=== PATIENT | female | born 2005 | race Two or more races ===

== ENCOUNTER 2025-04-01 14:54 | Emergency (ER) | payer BC, OTHER ==
[~2025-04-01] VITALS: Ht 149.9 cm; Wt 60.0 kg
--- NOTE | 2025-04-01 15:42 | DVH ---
CLINICAL INDICATION: r/o fracture TECHNIQUE: 3 radiographic views of the left ankle were obtained. Comparison: None FINDINGS/IMPRESSION: Soft tissue swelling around the distal tibia and fibula are noted. Bony structures appear intact normal alignment. No acute tibial or fibular fractures are visualized.
[2025-04-01] MEDS ORDERED: IBUP-1455 PO (16:05)
--- NOTE | 2025-04-01 16:05 | ED.PDOC ---
Musculoskeletal HPI Comments 19-year-old female that presents to the ED for chief complaint of left ankle pain. Patient states that she was getting into her bed and states she slipped and fell landed on her left ankle. Patient's states fall was earlier this afternoon and states she has been having pain and swelling to the medial and lateral left ankle. Patient denies hearing any crackling or popping sound after injury. Patient states she is able to ambulate but states she has pain while attempting to ambulate. Patient presents to the ED with a left ankle and Waqas bandage. Patient otherwise denies any other symptoms. Chief Complaint: Lower Extremity Time Seen by MD: 15:04 Reviewed Notes: Medications, Allergies Allergies: Coded Allergies: NO KNOWN ALLERGIES (Unverified , 04/01/25) Home Meds Active Scripts Ibuprofen Micronized (Ibuprofen) 800 Mg Tab, 800 MG PO Q8HP PRN for 10 Days, #30 TAB 0 Refills Prov:FERNANDOWESLY Liz NP 04/01/25 Information Source: Patient, Relative (Mother) Mode of Arrival: Wheelchair Brought in by: Mother Past Medical History PAST MEDICAL HISTORY: Denies Surgical History: Denies all surgeries LEGAL EDITOR History: Denies all LEGAL EDITOR Hx Family History Family History: Reviewed,noncontributory to illness Social History Smoker: Non-Smoker Alcohol: Denies ETOH Use Drugs: Denies Drug Use Lives In: Home Constitutional: denies: chills, diaphoresis, fatigue, fever, malaise, sweats, weakness, others EENTM: denies: blurred vision, double vision, ear bleeding, ear discharge, ear drainage, ear pain, ear ringing, eye pain, eye redness, hearing loss, mouth pain, mouth swelling, nasal discharge, nose bleeding, nose congestion, nose pain, photophobia, tearing, throat pain, throat swelling, voice changes, others Respiratory: denies: cough, hemoptysis, orthopnea, SOB at rest, shortness of breath, SOB with excertion, stridor, wheezing, others Cardiovascular: denies: chest pain, dizzy spells, diaphoresis, Dyspnea on exertion, edema, irregular heart beat, left arm pain, lightheadedness, palpitations, PND, syncope, others Gastrointestinal: denies: abdomen distended, abdominal pain, blood streaked bowels, constipated, diarrhea, dysphagia, difficulty swallowing, hematemesis, melena, nausea, poor appetite, poor fluid intake, rectal bleeding, rectal pain, vomiting, others Genitourinary: denies: abnormal vagina bleeding, burning, dyspareunia, dysuria, flank pain, frequency, hematuria, incontinence, pain, , vagina discharge, urgency, others Neurological: denies: dizziness, fainting, headache, left sided numbness, left sided weakness, numbness, paresthesia, pre-existing deficit, right sided numbness, right sided weakness, seizure, speech problems, tingling, tremors, weakness, others Musculoskeletal: reports: joint pain (Left ankle), joint swelling (Left ankle); denies: back pain, gout, muscle pain, muscle stiffness, neck pain, others Integumetry: denies: bruises, change in color, change in hair/nails, dryness, laceration, lesions, lumps, rash, wounds, others Allergic/Immunocompromised: denies: Difficulty Healing, Frequent Infections, Hives, Itching, others Hematologic/Lymphatic: denies: anemia, blood clots, easy bleeding, easy bruising, swollen glands, others Endocrine: denies: excessive hunger, excessive sweating, excessive thirst, excessive urination, flushing, intolerance to cold, intolerance to heat, unexp lained weight gain, unexplained weight loss, others Psychiatric: denies: anxiety, bipolar disorder, depression, hopeless, panic disorder, schizophrenia, sleepless, suicidal, others All Other Systems: Reviewed and Negative Physical Exam General Appearance: No Apparent Distress, Normal HEENT: Normal ENT Inspection, Pharynx Normal, TMs Normal Neck: Full Range of Motion, Non-Tender, Normal, Normal Inspection Respiratory: Chest Non-Tender, Lungs Clear, No Accessory Muscle Use, No Respiratory Distress, Normal Breath Sounds Cardiovascular: No Edema, No JVD, No Murmur, No Gallop, Normal Peripheral Pulse s, Regular Rate/Rhythm Breast Exam: Deferred Gastrointestinal: No Organomegaly, Non Tender, No Pulsatile Mass, Normal Bowel Sounds, Soft Genitalia: Deferred Pelvic: Deferred Rectal: Deferred Extremities: Swelling (Left ankle medial and lateral malleolus) Musculoskeletal : Apperance: Normal Neurologic: Alert, preventive medicine officer II-XII nml as Tested, No Motor Deficits, Normal Affect, Normal Mood, No Sensory Deficits Cerebellar Function: Normal Reflexes: Normal Skin: Dry, Normal Color, Warm Lymphatic: No Adenopathy Was a procedure done? Was a procedure done?: No Differential Diagnosis EXT Differential Diagnosis: Fracture, Sprain, Dislocation Other Differential Diagnosis Ankle sprain X-Ray, Labs, Meds, VS Vital Signs Date Time Temp Pulse Resp B/P (MAP) Pulse Ox O2 Delivery O2 Flow Rate FiO2 04/01/25 16:17 98.2 68 16 122/62 (82) 99 98.2 04/01/25 16:17 62 16 99 Room Air 04/01/25 14:56 97.7 89 16 124/59 98 97.7 [place] [id number] Ph: [phone] DIAGNOSTIC IMAGING Diagnostic Imaging Report : [id number] Signed PATIENT: NIK RANDLE ACCT: [id number] UNIT: [id number] : 2005 LOC: ER ROOM / BED: / AGE / SEX: 19 / F ADM STATUS: REG ER SERVICE 1501 ORDERING PHYSICIAN: WESLY KING NP PROCEDURE(s): LANKL - L ANKLE 3 VIEW REASON: r/o fracture ORDER NUMBER(s): [id number], ACCESSION NUMBER(s): [id number] CLINICAL INDICATION: r/o fracture TECHNIQUE: 3 radiographic views of the left ankle were obtained. Comparison: None FINDINGS/IMPRESSION: Soft tissue swelling around the distal tibia and fibula are noted. Bony structures appear intact normal alignment. No acute tibial or fibular fractures are visualized. ATED BY: HU MONTOYA Jr., DO DICTATED DATE/TIME: 04/01/251539 SIGNED BY: HU MONTOYA Jr., SIGNED DATE/TIME: 04/01/251539 CC: X-Ray, Labs, Meds, VS Comment Patient arrives alert and oriented, ABC's intact, afebrile, vital signs stable, saturating well in room air Diagnostic imaging ordered by me and results interpreted by radiology : FINDINGS/IMPRESSION: Soft tissue swelling around the distal tibia and fibula are noted. Bony structures appear intact normal alignment. No acute tibial or fibular fractures are visualized. Findings: No fracture or dislocation My wet read reveals no apparent acute bony abnormality, no FB, minimal to no soft tissue swelling and appropriate alignment. Presentation most consistent with Ankle Sprain. Patient does not currently demonstrate complications of sprain such as compartment syndrome, arterial or nerve injury. Differentials considered but not limited to: sprain, fracture, achilles tendon rupture, Maisonneuve fracture, distal fibula avulsion fracture, bi/tri-malleolar fracture, neurovascular compromise. The joint itself is non-irritable with ROM and there is no overlying redness and warmth to suggest injection. The Achilles and dorsiflexion tendon are non-tender and extension is intact. Disposition: Discharge. Supportive bracing provided. Patient was placed in an air-splint, WBAT. RICE. Strict return precautions and instructions to follow up with primary MD within 24-48 hours for further evaluation. May benefit from additional imaging such as stress views or MRI. Time of 1ST Reevaluation: 15:40 Reevaluation 1ST: Unchanged Patient Education/Counseling: Diagnosis, Treatment Family Education/Counseling: Diagnosis, Treatment Departure 1 Departure Time of Disposition: 16:02 Impression: Primary Impression: Left ankle sprain Qualified Codes: S93.402A - Sprain of unspecified ligament of left ankle, initial encounter Disposition: HOME / SELF CARE / HOMELESS Condition: Fair e-Prescriptions Ibuprofen Micronized (Ibuprofen) 800 Mg Tab 800 MG PO Q8HP PRN for 10 Days, #30 TAB 0 Refills Prov: WESLY KING NP 04/01/25 Discharged With: Self, Relative (Mother) Critical Care Note Critical Care Time?: No Stability Stability form required: No Heart Score Heart Score: Heart Score Response (Comments) Value History N/A 0 EKG N/A 0 Age N/A 0 Risk Factors N/A 0 Troponin N/A 0 Total 0 I personally scribed for WESLY KING NP ([email or web address]) on 04/01/25 at 16:12. Electronically submitted by Jossy Pickard ([email or web address]). I personally scribed for WESLY KING NP ([email or web address]) on 04/01/25 at 16:19. Elect ronically submitted by Jossy Pickard ([email or web address]). WESLY KING NP Apr 01, 2025 16:05
[2025-04-01 16:17] VITALS: BP 122/62; PULSE 62; RESP 16; TEMP 98.2; O2SAT 99
== END 2025-04-01 16:20 | disposition home or self-care (01) ==
LOC: ER 14:58
DX: S93.402A Sprain of unspecified ligament of left ankle, initial encounter (principal); W01.0XXA Fall on same level from slipping, tripping and stumbling without subsequent striking against object, initial encounter; Y93.89 Activity, other specified; Y92.89 Other specified places as the place of occurrence of the external cause; Y99.8 Other external cause status
CPT/HCPCS: 73610